=== PATIENT | male | born 1940 | race Caucasian/White ===

== ENCOUNTER 2016-10-22 18:55 | Inpatient (IN) | payer OTHER ==
[~2016-10-22] VITALS: Ht 175.3 cm; Wt 77.6 kg
[2016-10-22 19:40] LABS: HEMATOCRIT 45.9 % (39.0-50.0); IMMATURE GRANULOCYTES 0.3 % (0.0-1.0); MEAN CELL VOLUME 105.5 fL CALC (80.0-100.0); MEAN CORPUSCULAR HGB 34.5 pG CALC (26.0-32.0); MEAN CORPUSCULAR HGB CONC 32.7 g/L CALC (32.0-36.0); NEUT# 8.27 thou/uL (1.82-7.42); RED BLOOD COUNT 4.35 mill/uL (4.70-6.10); RED CELL DISTRI WIDTH 13.6 % (11.5-15.5)
[2016-10-22 19:47] LABS: URINE BLOOD DIPSTICK LARGE (NEGATIVE); URINE CLARITY CLEAR; URINE COLOR YELLOW; URINE GLUCOSE - DIPSTICK NEGATIVE (NEGATIVE); URINE KETONE TRACE mg/dL (NEGATIVE); URINE LEUK ESTERASE NEGATIVE (NEGATIVE); URINE NITRITE - DIPSTICK NEGATIVE (Negative); URINE PH 5.5 (4.5-8.0); URINE PROTEIN - DIPSTICK TRACE mg/dL (NEG-TRACE); URINE SPECIFIC GRAVITY >=1.030; URINE UROBILINOGEN - DIPSTICK 0.2 E.U./dL (0.2)
[2016-10-22 19:48] LABS: URINE BILIRUBIN - DIPSTICK NEGATIVE (NEGATIVE)
[2016-10-22] MEDS ORDERED: ATROVENT H17 MCG/ACT IN (19:56)
[2016-10-22 19:57] LABS: INTERNATIONAL NORMALIZED RATIO 1.5 RATIO (0.7-1.3); PROTHROMBIN TIME 16.4 SECONDS (9.0-12.5)
[2016-10-22] MEDS ORDERED: COUMADIN5 MG PO (19:57)
[2016-10-22] MEDS ORDERED: ROCEPHIN 1 GM1 GM IV (19:58)
[2016-10-22 19:59] LABS: ALBUMIN 3.9 g/dL (3.2-5.0); ALKALINE PHOSPHATASE 90 u/l (38-126); ANION GAP 15 (6-22 (CALC)); BILIRUBIN, TOTAL 1.1 mg/dL (0.0-1.4); BUN 19 mg/dL (8-23); BUN/CREATININE RATIO 20 (12-20 (CALC)); CALCIUM 9.1 mg/dL (8.4-10.2); CARBON DIOXIDE 26 mmol/l (22-30); CHLORIDE 103 mmol/l (95-108); GFR > 60 ML/MIN (>=60 (CALC)); GFR FOR AFR.AMER. > 60 ML/MIN (>=60 (CALC)); GLUCOSE 116 mg/dL (82-115); POTASSIUM 3.9 mmol/l (3.5-5.1); SGOT/AST 20 u/l (19-48); SGPT/ALT 24 u/l (11-66); SODIUM 140 mmol/l (137-146); TOTAL PROTEIN 7.2 g/dL (6.3-8.2)
[2016-10-22] MEDS ORDERED: PROVENTIL0.083 % IN (19:59)
[2016-10-22] MEDS ORDERED: IPRATROPIU0.5 MG/3 M IN (19:59)
[2016-10-22] MEDS ORDERED: ULTRAM50 M1 PO (20:00)
[2016-10-22] MEDS ORDERED: CIPRO400 MG/200 IV (20:01)
[2016-10-22] MEDS ORDERED: LASIX 40 MG TAB40 MG PO (20:01)
[2016-10-22] MEDS ORDERED: K-DUR/KLOR-CON20 MEQ PO (20:02)
[2016-10-22] MEDS ORDERED: METOPROL TAR25 MG PO (20:02)
[2016-10-22] MEDS ORDERED: DILTIAZEM30 MG PO (20:02)
[2016-10-22] MEDS ORDERED: LANOXIN0.125 MG PO (20:03)
[2016-10-22 20:10] LABS: MYOGLOBIN 89 ng/mL (0 - 121)
[2016-10-22 22:45] VITALS: BP 130/76
[2016-10-22 23:00] VITALS: BP 113/79
[2016-10-22 23:15] VITALS: BP 102/77
[2016-10-22 23:30] VITALS: BP 102/57
[2016-10-22 23:45] VITALS: BP 104/60
[2016-10-23] VITALS (10 sets, daily range): BP systolic 101–137; BP diastolic 62–79
[2016-10-23 04:46] LABS: ANION GAP 15 (6-22 (CALC)); BUN 22 mg/dL (8-23); BUN/CREATININE RATIO 24 (12-20 (CALC)); CARBON DIOXIDE 25 mmol/l (22-30); CHLORIDE 104 mmol/l (95-108); CREATININE 0.9 mg/dL (0.7-1.3); GFR > 60 ML/MIN (>=60 (CALC)); GFR FOR AFR.AMER. > 60 ML/MIN (>=60 (CALC)); GLUCOSE 148 mg/dL (82-115); MAGNESIUM 2.1 mg/dL (1.6-2.3); POTASSIUM 4.2 mmol/l (3.5-5.1); SODIUM 140 mmol/l (137-146)
[2016-10-23 05:57] LABS: INTERNATIONAL NORMALIZED RATIO 1.7 RATIO (0.7-1.3)
[2016-10-24 03:44] VITALS: BP 145/77
[2016-10-24 05:43] LABS: HEMATOCRIT 41.6 % (39.0-50.0); HEMOGLOBIN 13.8 g/dl (14.0-18.0); IMMATURE GRANULOCYTES 0.5 % (0.0-1.0); MEAN CELL VOLUME 102.7 fL CALC (80.0-100.0); MEAN CORPUSCULAR HGB 34.1 pG CALC (26.0-32.0); MEAN CORPUSCULAR HGB CONC 33.2 g/L CALC (32.0-36.0); NEUT# 9.84 thou/uL (1.82-7.42); RED BLOOD COUNT 4.05 mill/uL (4.70-6.10); RED CELL DISTRI WIDTH 13.3 % (11.5-15.5)
[2016-10-24 05:59] LABS: INTERNATIONAL NORMALIZED RATIO 3.6 RATIO (0.7-1.3); PROTHROMBIN TIME 43.2 SECONDS (9.0-12.5)
[2016-10-24 06:01] LABS: ANION GAP 15 (6-22 (CALC)); BUN 37 mg/dL (8-23); BUN/CREATININE RATIO 43 (12-20 (CALC)); CALCIUM 9.1 mg/dL (8.4-10.2); CARBON DIOXIDE 26 mmol/l (22-30); CHLORIDE 105 mmol/l (95-108); CREATININE 0.9 mg/dL (0.7-1.3); GFR > 60 ML/MIN (>=60 (CALC)); GFR FOR AFR.AMER. > 60 ML/MIN (>=60 (CALC)); GLUCOSE 142 mg/dL (82-115); POTASSIUM 4.4 mmol/l (3.5-5.1); SODIUM 140 mmol/l (137-146)
[2016-10-24 07:40] VITALS: BP 149/63
[2016-10-24 08:12] VITALS: BP 147/96
[2016-10-24 13:00] VITALS: BP 125/70
[2016-10-24 15:47] VITALS: BP 122/75
[2016-10-24 19:22] VITALS: BP 130/79
[2016-10-25] VITALS (7 sets, daily range): BP systolic 115–161; BP diastolic 71–95
[2016-10-25 06:36] LABS: HEMATOCRIT 42.5 % (39.0-50.0); IMMATURE GRANULOCYTES 0.4 % (0.0-1.0); MEAN CELL VOLUME 103.4 fL CALC (80.0-100.0); MEAN CORPUSCULAR HGB 34.1 pG CALC (26.0-32.0); MEAN CORPUSCULAR HGB CONC 32.9 g/L CALC (32.0-36.0); NEUT# 10.18 thou/uL (1.82-7.42); RED BLOOD COUNT 4.11 mill/uL (4.70-6.10); RED CELL DISTRI WIDTH 13.3 % (11.5-15.5)
[2016-10-25 06:53] LABS: ANION GAP 15 (6-22 (CALC)); BUN 35 mg/dL (8-23); BUN/CREATININE RATIO 47 (12-20 (CALC)); CALCIUM 9.1 mg/dL (8.4-10.2); CARBON DIOXIDE 27 mmol/l (22-30); CHLORIDE 104 mmol/l (95-108); CREATININE 0.7 mg/dL (0.7-1.3); GFR > 60 ML/MIN (>=60 (CALC)); GFR FOR AFR.AMER. > 60 ML/MIN (>=60 (CALC)); GLUCOSE 135 mg/dL (82-115); POTASSIUM 4.4 mmol/l (3.5-5.1); SODIUM 141 mmol/l (137-146)
[2016-10-25 08:35] LABS: PROTHROMBIN TIME 48.1 SECONDS (9.0-12.5)
[2016-10-26 04:15] VITALS: BP 134/54
[2016-10-26 05:31] LABS: HEMATOCRIT 45.6 % (39.0-50.0); HEMOGLOBIN 15.2 g/dl (14.0-18.0); IMMATURE GRANULOCYTES 1.3 % (0.0-1.0); MEAN CELL VOLUME 103.4 fL CALC (80.0-100.0); MEAN CORPUSCULAR HGB 34.5 pG CALC (26.0-32.0); MEAN CORPUSCULAR HGB CONC 33.3 g/L CALC (32.0-36.0); NEUT# 10.01 thou/uL (1.82-7.42); RED BLOOD COUNT 4.41 mill/uL (4.70-6.10); RED CELL DISTRI WIDTH 13.3 % (11.5-15.5)
[2016-10-26 05:44] LABS: ANION GAP 13 (6-22 (CALC)); BUN 39 mg/dL (8-23); BUN/CREATININE RATIO 47 (12-20 (CALC)); CALCIUM 9.5 mg/dL (8.4-10.2); CARBON DIOXIDE 31 mmol/l (22-30); CHLORIDE 101 mmol/l (95-108); CREATININE 0.8 mg/dL (0.7-1.3); GFR > 60 ML/MIN (>=60 (CALC)); GFR FOR AFR.AMER. > 60 ML/MIN (>=60 (CALC)); GLUCOSE 159 mg/dL (82-115); MAGNESIUM 2.7 mg/dL (1.6-2.3); POTASSIUM 4.6 mmol/l (3.5-5.1); SODIUM 141 mmol/l (137-146)
[2016-10-26 05:48] LABS: INTERNATIONAL NORMALIZED RATIO 2.8 RATIO (0.7-1.3); PROTHROMBIN TIME 32.8 SECONDS (9.0-12.5)
[2016-10-26 08:00] VITALS: BP 131/83
[2016-10-26 11:14] VITALS: BP 105/78
[2016-10-26 15:00] VITALS: BP 114/71
[2016-10-26 19:25] VITALS: BP 129/76
[2016-10-26 23:40] VITALS: BP 159/73
[2016-10-27 04:10] VITALS: BP 139/89
[2016-10-27 05:13] LABS: HEMATOCRIT 46.1 % (39.0-50.0); HEMOGLOBIN 15.2 g/dl (14.0-18.0); IMMATURE GRANULOCYTES 0.4 % (0.0-1.0); MEAN CELL VOLUME 103.1 fL CALC (80.0-100.0); NEUT# 10.64 thou/uL (1.82-7.42); RED BLOOD COUNT 4.47 mill/uL (4.70-6.10); RED CELL DISTRI WIDTH 12.9 % (11.5-15.5)
[2016-10-27 05:30] LABS: ANION GAP 12 (6-22 (CALC)); BUN 45 mg/dL (8-23); BUN/CREATININE RATIO 52 (12-20 (CALC)); CALCIUM 9.7 mg/dL (8.4-10.2); CARBON DIOXIDE 34 mmol/l (22-30); CHLORIDE 98 mmol/l (95-108); CREATININE 0.9 mg/dL (0.7-1.3); GFR > 60 ML/MIN (>=60 (CALC)); GFR FOR AFR.AMER. > 60 ML/MIN (>=60 (CALC)); GLUCOSE 145 mg/dL (82-115); SODIUM 139 mmol/l (137-146)
[2016-10-27 05:38] LABS: DIGOXIN 0.4 ng/mL (0.8-2.0)
[2016-10-27 05:40] LABS: INTERNATIONAL NORMALIZED RATIO 4.3 RATIO (0.7-1.3); PROTHROMBIN TIME 51.7 SECONDS (9.0-12.5)
[2016-10-27 08:31] VITALS: BP 139/81
[2016-10-27 12:11] VITALS: BP 120/72
[2016-10-27 16:28] VITALS: BP 129/78
[2016-10-27 19:15] VITALS: BP 105/63
[2016-10-27 23:50] VITALS: BP 123/80
[2016-10-28 04:12] VITALS: BP 126/83
[2016-10-28 06:13] LABS: HEMATOCRIT 46.4 % (39.0-50.0); HEMOGLOBIN 15.5 g/dl (14.0-18.0); IMMATURE GRANULOCYTES 0.4 % (0.0-1.0); MEAN CELL VOLUME 101.8 fL CALC (80.0-100.0); MEAN CORPUSCULAR HGB CONC 33.4 g/L CALC (32.0-36.0); NEUT# 11.19 thou/uL (1.82-7.42); RED BLOOD COUNT 4.56 mill/uL (4.70-6.10); RED CELL DISTRI WIDTH 12.7 % (11.5-15.5)
[2016-10-28 06:27] LABS: INTERNATIONAL NORMALIZED RATIO 2.8 RATIO (0.7-1.3); PROTHROMBIN TIME 32.6 SECONDS (9.0-12.5)
[2016-10-28 06:38] LABS: ANION GAP 13 (6-22 (CALC)); BUN 46 mg/dL (8-23); BUN/CREATININE RATIO 58 (12-20 (CALC)); CALCIUM 9.5 mg/dL (8.4-10.2); CARBON DIOXIDE 35 mmol/l (22-30); CHLORIDE 96 mmol/l (95-108); CREATININE 0.8 mg/dL (0.7-1.3); GFR > 60 ML/MIN (>=60 (CALC)); GFR FOR AFR.AMER. > 60 ML/MIN (>=60 (CALC)); GLUCOSE 111 mg/dL (82-115); POTASSIUM 4.8 mmol/l (3.5-5.1); SODIUM 139 mmol/l (137-146)
[2016-10-28 08:01] VITALS: BP 156/88
[2016-10-28] MEDS ORDERED: PREDNISONE10 MG PO (10:26)
[2016-10-28] MEDS ORDERED: CARDIZEM CD240 MG PO (10:26)
[2016-10-28] MEDS ORDERED: BIOTUSSIN PO (10:26)
[2016-10-28] MEDS ORDERED: LOPRESSOR 550 MG/TAB PO (10:26)
[2016-10-28] MEDS ORDERED: TAMSULOSIN HCL0.4 MG PO (10:26)
[2016-10-28 10:51] VITALS: BP 108/70
== END 2016-10-28 12:24 | DRG 291 ==
LOC: ENPENDDIS → ED 18:55 → ED-I 20:45 → ICU 20:45 → ED 20:45 → ED-I 20:56 → MS2 10-23 14:31
PROVIDERS: Emergency Medicine; Internal Medicine; ADMIT Internal Medicine; ATTEND Internal Medicine
PROC: 5A09357 Assistance with Respiratory Ventilation, Less than 24 Consecutive Hours, Continuous Positive Airway Pressure (ICD-10-PCS; principal; 2016-10-22)
PROC: 3E0234Z Introduction of Serum, Toxoid and Vaccine into Muscle, Percutaneous Approach (ICD-10-PCS; 2016-10-24)
DX: I11.0 Hypertensive heart disease with heart failure (principal); J96.21 Acute and chronic respiratory failure with hypoxia; I48.2 Chronic atrial fibrillation; J44.1 Chronic obstructive pulmonary disease with (acute) exacerbation; I50.31 Acute diastolic (congestive) heart failure; G89.29 Other chronic pain; F41.0 Panic disorder [episodic paroxysmal anxiety]; R33.9 Retention of urine, unspecified; Z79.01 Long term (current) use of anticoagulants; Z87.891 Personal history of nicotine dependence; Z23 Encounter for immunization

== ENCOUNTER 2017-03-17 09:40 | Emergency (ER) | payer OTHER ==
[~2017-03-17] VITALS: Ht 175.3 cm; Wt 60.0 kg
[~2017-03-17 09:40] MED LIST: ATROVENT H17 MCG/ACT IN; BIOTUSSIN PO; CARDIZEM CD240 MG PO; CIPRO400 MG/200 IV; COUMADIN5 MG PO; DILTIAZEM30 MG PO; IPRATROPIU0.5 MG/3 M IN; K-DUR/KLOR-CON20 MEQ PO; LANOXIN0.125 MG PO; LASIX 40 MG TAB40 MG PO; LOPRESSOR 550 MG/TAB PO; METOPROL TAR25 MG PO; PREDNISONE10 MG PO; PROVENTIL0.083 % IN; ROCEPHIN 1 GM1 GM IV; TAMSULOSIN HCL0.4 MG PO; ULTRAM50 M1 PO
[2017-03-17 10:45] LABS: URINE BILIRUBIN - DIPSTICK NEGATIVE (NEGATIVE); URINE BLOOD DIPSTICK NEGATIVE (NEGATIVE); URINE CLARITY CLEAR; URINE COLOR YELLOW; URINE GLUCOSE - DIPSTICK NEGATIVE (NEGATIVE); URINE KETONE NEGATIVE (NEGATIVE); URINE LEUK ESTERASE TRACE (NEGATIVE); URINE NITRITE - DIPSTICK NEGATIVE (Negative); URINE PH 5.5 (4.5-8.0); URINE PROTEIN - DIPSTICK NEGATIVE (NEG-TRACE); URINE UROBILINOGEN - DIPSTICK 0.2 E.U./dL (0.2)
[2017-03-17 11:06] LABS: HEMATOCRIT 47.1 % (39.0-50.0); HEMOGLOBIN 15.5 g/dl (14.0-18.0); IMMATURE GRANULOCYTES 0.4 % (0.0-1.0); MEAN CELL VOLUME 103.5 fL CALC (80.0-100.0); MEAN CORPUSCULAR HGB 34.1 pG CALC (26.0-32.0); MEAN CORPUSCULAR HGB CONC 32.9 g/L CALC (32.0-36.0); NEUT# 8.52 thou/uL (1.82-7.42); RED BLOOD COUNT 4.55 mill/uL (4.70-6.10); RED CELL DISTRI WIDTH 13.1 % (11.5-15.5)
[2017-03-17 11:41] LABS: ALBUMIN 3.8 g/dL (3.2-5.0); ALKALINE PHOSPHATASE 97 u/l (38-126); ANION GAP 12 (6-22 (CALC)); BILIRUBIN, TOTAL 0.6 mg/dL (0.0-1.4); BUN 23 mg/dL (8-23); BUN/CREATININE RATIO 21 (12-20 (CALC)); CALCIUM 9.5 mg/dL (8.4-10.2); CARBON DIOXIDE 35 mmol/l (22-30); CHLORIDE 100 mmol/l (95-108); CREATININE 1.1 mg/dL (0.7-1.3); GFR > 60 ML/MIN (>=60 (CALC)); GFR FOR AFR.AMER. > 60 ML/MIN (>=60 (CALC)); GLUCOSE 135 mg/dL (82-115); POTASSIUM 4.6 mmol/l (3.5-5.1); SGOT/AST 40 u/l (19-48); SGPT/ALT 51 u/l (11-66); SODIUM 142 mmol/l (137-146); TOTAL PROTEIN 7.2 g/dL (6.3-8.2)
[2017-03-17 11:54] LABS: MYOGLOBIN 31 ng/mL (0 - 121)
[2017-03-17] MEDS ORDERED: ZPAK PO (12:26)
[2017-03-17] MEDS ORDERED: MEDDOSEPAK PO (12:26)
[2017-03-17 12:32] VITALS: BP 148/79
== END 2017-03-17 12:47 | disposition designated cancer center or children's hospital (05) | DRG 192 ==
LOC: ED 09:40
PROVIDERS: Emergency Medicine
DX: J44.1 Chronic obstructive pulmonary disease with (acute) exacerbation (principal); I10 Essential (primary) hypertension; R06.02 Shortness of breath; R07.9 Chest pain, unspecified